=== PATIENT | male | born 1940 | race African-American/Black ===

== ENCOUNTER 2021-07-06 04:32 | Day surgery (SDC) | payer OTHER ==
[2021-07-05 10:57] VITALS: BMI 22.4
[2021-07-06] MEDS ORDERED: GENTAMICIN SO4 80 MG/2 ML VIAL ONE ×3 (11:31→12:15)
[2021-07-06] MEDS ORDERED: VANCOMYCIN 1,000 MG VIAL (RESTRICTED TO ID ONLY) ONE ×3 (11:43→12:38)
[2021-07-06] MEDS ORDERED: PROPOFOL 20 ML ONE (11:58)
[2021-07-06] MEDS ORDERED: MIDAZOLAM HCL 2 MG/2 ML SINGLE DOSE VIAL ONE (11:58)
[2021-07-06] MEDS ORDERED: propRANOLol HCL 10 MG TABLET PO ONE (12:44)
[2021-07-06] MEDS ORDERED: VANCOMYCIN 1,000 MG VIAL (RESTRICTED TO ID ONLY) IVPB ONE ×2 (12:52)
[2021-07-06] MEDS ORDERED: GENTAMICIN SO4 80 MG/2 ML VIAL IVPB ONE ×2 (12:52)
[2021-07-06] MEDS ORDERED: DEXAMETHASONE SOD PHOSPHATE 4 MG/1 ML VIAL ONE (15:32)
[2021-07-06] MEDS ORDERED: ONDANSETRON 4 MG/2 ML VIAL IVPUSH PRN (16:17)
[2021-07-06] MEDS ORDERED: LACTATED RINGERS SOLUTION 1,000 ML IV SCH (16:30)
[2021-07-06 17:55] VITALS: TEMP 97.4
[2021-07-06 18:40] VITALS: BP 124/65; PULSE 85
[2021-07-07] MEDS ORDERED: amLODIPine BESYLATE 10 MG TABLET (FP) PO SCH (10:00)
[2021-07-07] MEDS ORDERED: ENALAPRIL MALEATE 10 MG TABLET PO SCH (10:00)
== END 2021-07-06 18:42 | disposition home or self-care (01) ==
LOC: JASUSAT 04:32 → JASU-SURG 04:32 → JASUSAT 18:42
PROVIDERS: ATTEND Urology
PROC: 0VUS0JZ Supplement Penis with Synthetic Substitute, Open Approach (ICD-10-PCS; principal; 2021-07-06 13:00)
DX: N52.8 Other male erectile dysfunction (principal); N99.71 Accidental puncture and laceration of a genitourinary system organ or structure during a genitourinary system procedure; Z53.8 Procedure and treatment not carried out for other reasons; Y65.8 Other specified misadventures during surgical and medical care; Y73.3 Surgical instruments, materials and gastroenterology and urology devices (including sutures) associated with adverse incidents; Y92.530 Ambulatory surgery center as the place of occurrence of the external cause
CPT/HCPCS: 94760

== ENCOUNTER 2021-12-07 04:15 | Day surgery (SDC) | payer OTHER ==
[2021-12-04 11:42] VITALS: BMI 23.3
[2021-12-07] MEDS ORDERED: GENTAMICIN SO4 80 MG/2 ML VIAL ONE ×2 (12:35→13:35)
[2021-12-07] MEDS ORDERED: VANCOMYCIN 1,000 MG VIAL (RESTRICTED TO ID ONLY) ONE ×3 (12:35→13:32)
[2021-12-07] MEDS ORDERED: ceFAZolin SODIUM 1 GM VIAL ONE (12:35)
[2021-12-07] MEDS ORDERED: PROPOFOL 20 ML ONE (12:47)
[2021-12-07] MEDS ORDERED: ONDANSETRON 4 MG/2 ML VIAL ONE (12:47)
[2021-12-07] MEDS ORDERED: LIDOCAINE HCL 2% 100 MG/5 ML DISP.SYRIN ONE (12:47)
[2021-12-07] MEDS ORDERED: DEXAMETHASONE SOD PHOSPHATE 4 MG/1 ML VIAL ONE (12:47)
[2021-12-07] MEDS ORDERED: KETOROLAC TROMETHAMINE 30 MG/1 ML VIAL ONE (12:47)
[2021-12-07] MEDS ORDERED: MIDAZOLAM HCL 2 MG/2 ML SINGLE DOSE VIAL ONE (12:48)
[2021-12-07] MEDS ORDERED: VANCOMYCIN 1 GM in D5W (PRE-DOCKED) 1,000 MG/250 ML IVPB ONE ×5 (13:08→13:51)
[2021-12-07] MEDS ORDERED: GENTAMICIN SO4 80 MG/2 ML VIAL IVPB ONE ×5 (13:09→13:51)
[2021-12-07] MEDS ORDERED: PROMETHAZINE HCL 25 MG/1 ML VIAL IVPUSH PRN (16:25)
[2021-12-07] MEDS ORDERED: oxyCODONE HCL 5 MG TABLET PO PRN ×2 (16:25)
[2021-12-07] MEDS ORDERED: ONDANSETRON 4 MG/2 ML VIAL IVPUSH PRN (16:25)
[2021-12-07] MEDS ORDERED: LACTATED RINGERS SOLUTION 1,000 ML IV SCH (16:30)
[2021-12-07 17:08] VITALS: TEMP 97.2
[2021-12-07 17:21] VITALS: BP 130/81; PULSE 53; RESP 20
== END 2021-12-07 17:30 | disposition home or self-care (01) ==
LOC: JASU-SURG 04:15
PROVIDERS: ATTEND Urology
PROC: 0VUS0JZ Supplement Penis with Synthetic Substitute, Open Approach (ICD-10-PCS; principal; 2021-12-07 12:00)
DX: N52.9 Male erectile dysfunction, unspecified (principal)
CPT/HCPCS: 54400; L8699; 94760